=== PATIENT | female | born 1950 | race African-American/Black ===

== ENCOUNTER 2021-05-28 14:13 | Emergency (ER) | payer MEDICARE, OTHER ==
[~2021-05-28] VITALS: Ht 180.3 cm; Wt 90.9 kg
[2021-05-28 14:48] LABS: BASO % 0 % (0-3); EOS # 0.1 x10^3/uL (0.0-0.7); EOS % 3 % (0-3); HEMATOCRIT 25.4 % (36.0-47.0); HEMOGLOBIN 8.2 g/dL (12.0-15.5); LYMPH # 1.4 x10^3/uL (1.0-4.8); LYMPH % 26 % (24-48); MEAN CORPUSCULAR HEMOGLOBIN 31 pg (25-35); MEAN CORPUSCULAR HGB CONC 32 g/dL (31-37); MEAN CORPUSCULAR VOLUME 98 fL (79-100); MONO # 0.3 x10^3/uL (0.0-1.1); MONO % 6 % (0-9); NEUT # 3.5 x10^3uL (1.8-7.7); NEUT % 65 % (31-73); PLATELET COUNT 199 x10^3/uL (140-400); RED BLOOD COUNT 2.61 x10^6/uL (3.50-5.40); RED CELL DISTRIBUTION WIDTH 17.9 % (11.5-14.5); WHITE BLOOD COUNT 5.4 x10^3/uL (4.0-11.0)
[2021-05-28 14:53] LABS: CALCIUM 8.2 mg/dL (8.5-10.1); CREATININE 3.8 mg/dL (0.6-1.0); GFR 14.2; POTASSIUM 4.1 mmol/L (3.5-5.1)
--- NOTE | 2021-05-28 15:00 | RAD ---
Single view of the chest. 05/28/2021 2:40 PM Indication: Reason: hypoxia, acute on chronic renal failure / Comparison: None Findings: Lung volumes are low. No pneumothorax is seen. Hazy opacity lung bases may represent small layering effusions with underlying atelectasis. There appears to be diffuse interstitial thickening w hich may represent mild edema. Heart appears top normal in size. No acute osseous changes are seen. IMPRESSION: Interstitial thickening possibly mild edema, with hazy opacity in lung bases possibly lay ering effusions with underlying atelectasis or infiltrate Electronically signed by: Boston Bowers MD (05/28/2021 2:57 PM) [id number]
[2021-05-28 15:05] LABS: ALBUMIN 2.5 g/dL (3.4-5.0); ALBUMIN/GLOBULIN RATIO 0.5 (1.0-1.7); TOTAL BILIRUBIN 0.2 mg/dL (0.2-1.0); TOTAL PROTEIN 7.6 g/dL (6.4-8.2)
[2021-05-28 15:16] LABS: FECAL OB PT NEGATIVE (NEG)
--- NOTE | 2021-05-28 15:42 | PHYS DOC ---
Past History Past Surgical History: Other Alcohol Use: None Adult General Chief Complaint Chief Complaint: ABNORMAL LABS HPI HPI The patient is a 70-year-old comorbid female with a history of hypertension, hyperlipidemia, insulin-dependent diabetes, chronic kidney disease with a baseline creatinine of about 2.0, chronic anemia with a baseline hemoglobin of around 8.0, CVA status post left-sided hemiparesis, vascular dementia. She is on hospice for unclear reasons. Patient presents from her nursing facility for evaluation of low hemoglobin measured at the facility. Paperwork sent with her indicates that she had a hemoglobin of 7.3 with a baseline hemoglobin of around 8.5. snf physician was concerned about bleeding and wanted her evaluated. Additional lab work sent with the patient reveals a creatinine of 3.9 today with a baseline of around 2.0. Upon initial evaluation here in the emergency department patient is alert and pleasantly and appropriately interactive and in no acute distress. She denies pain anywhere and is pleasantly confused. She is unable to provide additional useful history. Vital signs are appropriate aside from hypoxia with a room air oxygen saturation in the low 80s. Oxygen saturation is appropriate on 3 L by nasal cannula. Patient does not wear oxygen at home. Review of Systems Review of Systems Review of systems could not be completed secondary to demented patient. Allergies Allergies Allergies Coded Allergies Type Severity Reaction Last Updated Verified No Known Drug Allergies 05/28/21 No Physical Exam Physical Exam Elderly black female appearing nontoxic and in no acute distress. Head is normocephalic and atraumatic. Neck is supple and nontender. No JVD. Oropharynx is moist. Lungs with diminished breath sounds to all leigh but no adventitious sounds heard. Normal respiratory effort. There is a normal S1 and S2 without rubs or gallops and capillary refill is appropriate, less than 2 seconds globally. Abdomen is soft, nontender and nondistended without pulsatile mass. Skin is warm and dry without cyanosis, clubbing or edema. Psychiatrically, the patient demonstrates appropriate mood and affect and is alert. Neurologically, patient moves her right side without difficulty but does not seem to move the left side much if at all, which is baseline. Evaluation of the back in the groin reveals no significant skin breakdown, erythema, warmth, swelling or tenderness. Evaluation of the extremities reveals BUEs and BLEs warm and well-perfused. 2+ DP, PT and radial pulses bilaterally. Left upper and left lower extremities with chronic contractures. Current Patient Data Vital Signs Vital Signs Date Time Temp Pulse Resp B/P (MAP) Pulse Ox O2 Delivery O2 Flow Rate FiO2 05/28/21 14:53 98.2 93 16 157/112 (127) 93 Nasal Cannula 3.0 Lab Results Laboratory Tests Test 05/28/21 14:29 05/28/21 14:40 White Blood Count 5.4 x10^3/uL (4.0-11.0) Red Blood Count 2.61 x10^6/uL (3.50-5.40) L Hemoglobin 8.2 g/dL (12.0-15.5) L Hematocrit 25.4 % (36.0-47.0) L Mean Corpuscular Volume 98 fL (79-100) Mean Corpuscular Hemoglobin 31 pg (25-35) Mean Corpuscular Hemoglobin Concent 32 g/dL (31-37) Red Cell Distribution Width 17.9 % (11.5-14.5) H Platelet Count 199 x10^3/uL (140-400) Neutrophils (%) (Auto) 65 % (31-73) Lymphocytes (%) (Auto) 26 % (24-48) Monocytes (%) (Auto) 6 % (0-9) Eosinophils (%) (Auto) 3 % (0-3) Basophils (%) (Auto) 0 % (0-3) Neutrophils # (Auto) 3.5 x10^3uL (1.8-7.7) Lymphocytes # (Auto) 1.4 x10^3/uL (1.0-4.8) Monocytes # (Auto) 0.3 x10^3/uL (0.0-1.1) Eosinophils # (Auto) 0.1 x10^3/uL (0.0-0.7) Basophils # (Auto) 0.0 x10^3/uL (0.0-0.2) Sodium Level 140 mmol/L (136-145) Potassium Level 4.1 mmol/L (3.5-5.1) Chloride Level 105 mmol/L (98-107) Carbon Dioxide Level 26 mmol/L (21-32) Anion Gap 9 (6-14) Blood Urea Nitrogen 70 mg/dL (7-20) H Creatinine 3.8 mg/dL (0.6-1.0) H Estimated GFR (Cockcroft-Gault) 14.2 BUN/Creatinine Ratio 18 (6-20) Glucose Level 184 mg/dL (70-99) H Calcium Level 8.2 mg/dL (8.5-10.1) L Total Bilirubin 0.2 mg/dL (0.2-1.0) Aspartate Amino Transferase (AST) 19 U/L (15-37) Alanine Aminotransferase (ALT) 18 U/L (14-59) Alkaline Phosphatase 95 U/L (46-116) Troponin I High Sensitivity 17 ng/L (4-50) LP-Uag-V-Type Natriuretic Peptide 5986 pg/mL (0-124) H Total Protein 7.6 g/dL (6.4-8.2) Albumin 2.5 g/dL (3.4-5.0) L Albumin/Globulin Ratio 0.5 (1.0-1.7) L Stool Occult Blood Negative (NEG) EKG EKG Sinus rhythm, rate 74, no acute ST elevation or depression, SD 136, QRS 78, QTc 447, EP interpretation. Nonischemic tracing, intervals appropriate. Radiology/Procedures Radiology/Procedures Single view of the chest. 05/28/2021 2:40 PM Indication: Reason: hypoxia, acute on chronic renal failure / Comparison: None Findings: Lung volumes are low. No pneumothorax is seen. Hazy opacity lung bases may represent small layering effusions with underlying atelectasis. There appears to be diffuse interstitial thickening which may represent mild edema. Heart appears top normal in size. No acute osseous changes are seen. IMPRESSION: Interstitial thickening possibly mild edema, with hazy opacity in lung bases possibly layering effusions with underlying atelectasis or infiltrate Electronically signed by: Boston Aragon MD (05/28/2021 2:57 PM) [id number] DICTATED AND SIGNED BY: BOSTON ARAGON MD DATE: 05/28/21 1456 CC: ANA MARIA BRENNER MD; SOFIE SALGUERO ~MTH0 0 Heart Score C/O Chest Pain: No Risk Factors: Risk Factors: DM, Current or recent (<one month) smoker, HTN, HLP, family history of CAD, obesity. Risk Scores: Risk Factors: DM, Current or recent (<one month) smoker, HTN, HLP, family history of CAD, obesity. Course & Med Decision Making Course & Med Decision Making Labs and imaging as noted. Patient has evidence of volume overload with acute on chronic renal insufficiency with pitting peripheral edema to the distal left lower extremity and evidence of mild pulmonary edema with a new oxygen requirement. Hemoglobin is actually at baseline. Other labs are reassuring. If family want full care, patient will need to be admitted. Case discussed with granddaughter who is DPOA. She requests full care for the patient's presenting medical issues. She request that admission be at [facility] if possible. Called [facility] transfer center and they advised me that they do not have any capability to accept patients in transfer at this time due to bed capacity. Patient will need diuresis in the setting of acute on chronic renal insufficiency and may need nephrology input which is not available here at [facility]. Therefore, will attempt to transfer to [facility] for further evaluation. 1615: Graciously accepted in transfer to [facility] by Dr. Brooks. Will complete venous Doppler studies of BLEs, given immobility and LLE swelling distally, prior to transfer. CC time 44 minutes, independent of separately billed procedure time. Dragon Disclaimer Dragon Disclaimer This electronic medical record was generated, in whole or in part, using a voice recognition dictation system. Departure Departure: Impression: Primary Impression: Volume overload Additional Impressions: Acute hypoxemic respiratory failure Acute renal failure Disposition: 02 SHORT TERM HOSPITAL Condition: STABLE Referrals: SOFIE SALGUERO (PCP) Problem Qualifiers Primary Impression: Volume overload Hypervolemia type: other Qualified Codes: E87.79 - Other fluid overload Additional Impressions: Acute renal failure Acute renal failure type: unspecified Qualified Codes: N17.9 - Acute kidney failure, unspecified ANA MARIA BRENNER MD May 28, 2021 15:42
--- NOTE | 2021-05-28 17:04 | RAD ---
Exam: Bilateral lower extremity venous duplex study INDICATION: Leg swelling TECHNIQUE: Using a combination of real-time ultrasound imaging and color-flow and pulse Doppler imagi ng techniques along with graded compression and augmentation, duplex evaluation of the deep venous sy stems of bilateral lower extremity was performed. Multiple images were obtained. Findings: There is no sonographic evidence for deep venous thrombosis involving the visualized deep venous stru ctures of the bilateral lower extremity. IMPRESSION: No acute DVT in the bilateral lower extremities. Electronically signed by: Siria Pompa MD (05/28/2021 5:02 PM) JOSE F
[2021-05-28 18:12] LABS: BACTERIA,URINE MOD /HPF (0-FEW); BILIRUBIN,URINE NEG (NEG); CLARITY,URINE HAZY; COLOR,URINE YELLOW; GLUCOSE,URINE NEG (NEG); NITRITE,URINE NEG (NEG); RBC,URINE OCC /HPF (0-2); SQUAMOUS EPITHELIAL CELL,UR FEW /LPF; UROBILINOGEN,URINE 0.2 mg/dL (0.2 mg/dL); WBC,URINE >40 /HPF (0-4)
[2021-05-28 18:18] LABS: INFLUENZA A PATIENT NEGATIVE (NEGATIVE); INFLUENZA B PATIENT NEGATIVE (NEGATIVE)
[2021-05-28] MEDS ORDERED: LABETALOL 20 MG/4 ML DISP.SYRIN. ONE (18:54)
[2021-05-28] MEDS ORDERED: LABETALOL 20 MG/4 ML DISP.SYRIN. IVP ONE ×2 (19:00→20:00)
[2021-05-28 19:57] VITALS: BP 221/107
--- NOTE | 2021-05-28 20:48 | EKG ---
[address] [address] Test Date: 2021-05-28 Test Time: 14:44:22 Pat Name: GLADYS BARBER Department: Room: Gender: F [employer] Contact Worker: JOSH : [id number] Requested By: ANA MARIA BRENNER Order Number: [id number] Reading MD: Ruben Grimes MD Measurements Intervals [place] Rate: 74 P: 42 MS: 136 QRS: 65 QRSD: 78 T: 48 QT: 402 QTc: 447 Interpretive Statements SINUS RHYTHM Electronically Signed On 06-01-2021 8:35:21 CREDENTIALER by Ruben Grimes MD
== END 2021-05-28 20:04 | disposition short-term general hospital (02) ==
LOC: ER 14:13
DX: J96.01 Acute respiratory failure with hypoxia (principal); N17.9 Acute kidney failure, unspecified; E87.70 Fluid overload, unspecified; I12.9 Hypertensive chronic kidney disease with stage 1 through stage 4 chronic kidney disease, or unspecified chronic kidney disease; E11.22 Type 2 diabetes mellitus with diabetic chronic kidney disease; N18.9 Chronic kidney disease, unspecified; Z20.822 Contact with and (suspected) exposure to COVID-19
CPT/HCPCS: 36415; 71045; 80053; 81001; 82274; 83880; 84145; 84484; 85025; 85610; 85730; 86850; 86900; 86901; 87077; 87086; 87186; 87428; 93005; 93970; 96374; 99291; C9803; J3490; U0003